=== PATIENT | male | born 1980 | race Caucasian/White ===

== ENCOUNTER 2020-05-31 10:26 | Emergency (ER) | payer SELFPAY ==
[2020-05-31 10:30] VITALS: BP 126/79; PULSE 77; RESP 16; TEMP 36.4; O2SAT 100
--- NOTE | 2020-05-31 10:57 | ED.GENADULT ---
HPI - General Adult General Chief complaint: Skin/Abscess/Foreign Body Stated complaint: infection under my arm Time Seen by Provider: 05/31/20 10:28 Source: patient Mode of arrival: ambulatory Limitations: no limitations History of Present Illness HPI narrative: Patient is a 39-year-old male who presents with several days duration of red tender swollen areas to the right armpit attempted to reyna the lesions unsuccessfully does note some drainage patient notes mild aching pain worse with touch and activity patient otherwise resting comfortably in the room on arrival in no distress denies fever chills nausea vomiting or immunocompromise Related Data Allergies Allergy/AdvReac Type Severity Reaction Status Date / Time hydrocodone Allergy Unknown Skin Verified 05/31/20 10:32 Reaction Sulfa (Sulfonamide Allergy Unknown Unknown Verified 05/31/20 10:32 Antibiotics) Review of Systems Review of Systems: All systems reviewed & are unremarkable except as noted in HPI and below PMFSH Family History Family History (Updated 04/04/16 @ 23:19 by DOCTOR UNKNOWN) Mother Family history of diabetes mellitus in first degree relative Social History Social History Smoking status: Never smoker Alcohol intake: never Exam Narrative: Exam Narrative: GENERAL: Well-appearing, well-nourished, and in no acute distress. HEAD: Normocephalic, atraumatic. EYES: PERRLA and EOMI. ENT: Nares clear, no rhinorrhea or epistaxis. Mucous membranes moist. CHEST: Clear to auscultation. No respiratory distress. No wheezes rales or rhonchi HEART: Regular rate and rhythm. No murmur heard. EXTREMITIES: Normal range of motion. No edema. SKIN: Warm, dry, no rash. Patient with 2 small abscesses in the right armpit one with central opening draining purulence no cellulitic changes surrounding the 2 abscesses both of which measure approximately 2 cm in diameter NEURO: No focal deficits. Alert and oriented x3. Neurovascularly intact PSYCH: Normal mood and affect. Course Course Emergency Course: Patient refused to have I&D of his abscesses patient was educated that the I&D is likely the answer to resolving the abscesses but patient is adamant that he does not want to do the I&D refused to do so. Patient will be given medications with plastic surgery follow-up advised to follow with primary care as well. Patient also given reasons to return Vital Signs Vital signs: Vital Signs Temperature 97.6 F 05/31/20 10:30 Pulse Rate 77 05/31/20 10:30 Respiratory Rate 16 05/31/20 10:30 Blood Pressure 126/79 05/31/20 10:30 Pulse Oximetry 100 05/31/20 10:30 Temperature 97.6 F 05/31/20 10:30 Pulse Rate 77 05/31/20 10:30 Respiratory Rate 16 05/31/20 10:30 Blood Pressure 126/79 05/31/20 10:30 Pulse Oximetry 100 05/31/20 10:30 Medical Decision Making MDM Narrative Medical decision making narrative: Patient refused I&D was made aware of that this is critical to the treatment of the abscess however he is still refusing to do so given anxiety. Patient will follow up with primary care and has been given reasons to return Vital Signs Vital Signs: Vital Signs Temperature 97.6 F 05/31/20 10:30 Pulse Rate 77 05/31/20 10:30 Respiratory Rate 16 05/31/20 10:30 Blood Pressure 126/79 05/31/20 10:30 Pulse Oximetry 100 05/31/20 10:30 Temperature 97.6 F 05/31/20 10:30 Pulse Rate 77 05/31/20 10:30 Respiratory Rate 16 05/31/20 10:30 Blood Pressure 126/79 05/31/20 10:30 Pulse Oximetry 100 05/31/20 10:30 Discharge Plan Discharge Clinical Impression: Abscess of skin or subcutaneous tissue Patient Disposition: Home, Self-Care Condition: Stable Instructions: Antibiotic Form, Abscess (ED) Additional Instructions: Follow up with primary care in the next 2-3 days for re-evaluation return if symptoms worsen or concerns, any increas
[2020-05-31] MEDS: LIDOCAINE HCL 1% LOCAL INJ 20 ML VIAL (11:22)
[2020-05-31 12:37] VITALS: BP 121/78; PULSE 76; RESP 16; O2SAT 99
== END 2020-05-31 12:39 | disposition home or self-care (01) ==
PROVIDERS: Emergency Provider Emergency Medicine
DX: L02.411 Cutaneous abscess of right axilla (principal)
CPT/HCPCS: 99283

== ENCOUNTER 2024-10-03 22:43 | Emergency (ER) | payer OTHER, SELFPAY ==
--- NOTE | ~2024-10-03 | XR_ITS ---
EXAMINATION: XR chest 2V DATE: 10/03/2024 23:30 INDICATION: Shortness of breath. TECHNIQUE: Frontal and lateral views of the chest were obtained. COMPARISON: Chest 2 views 12/23/2014 FINDINGS: There is no pneumonia, pleural effusion, or pneumothorax. The heart size is normal. There i s mild chronic anterior wedging of multiple vertebral bodies. IMPRESSION: 1. No acute cardiopulmonary disease. Reviewed, dictated and finalized at location [facility]. [facility]
--- NOTE | ~2024-10-03 | CT_ITS ---
Clinical Indication: Pulmonary embolus CT Scan of the Chest with Contrast: Technique: Contiguous sections were acquired throughout the chest after intravenous administration of 100 cc of Omnipaque 350. Dose reduction technique was used on this scan by utilizing automated expos ure control and iterative reconstruction technique. The dose-length product (DLP) was 642.40 mGy-cm. Findings: There is no evidence of any significant mediastinal, hilar or axillary lymphadenopathy. There is no f illing defect in the pulmonary arterial tree to suggest pulmonary embolus. There is no evidence of ao rtic dissection or aneurysm. There is no evidence of pleural or pericardial effusion. The lungs are clear. No pulmonary nodules or infiltrates are noted. Images through the upper abdomen reveal no abnormalities. There is mild chronic compression deformity of T9. Impression: No evidence of pulmonary embolus, aortic dissection, or aortic aneurysm. Clear lungs. Reviewed, dictated and finalized at [facility]. EE DEVELOPER Impression: No evidence of pulmonary embolus, aortic dissection, or aortic aneurysm. Clear lungs.
--- NOTE | 2024-10-03 22:59 | ECG_ITS ---
Test Date: 2024-10-03 23:08:11 Measurements Intervals [place] Rate: 137 P: 61 CT: 119 QRS: 68 QRSD: 72 T: 47 QT: 313 QTc: 474 Interpretive Statements SINUS TACHYCARDIA WITH SHORT CT INTERVAL NONSPECIFIC ST & T-WAVE ABNORMALITY No previous ECG available for comparison Electronically Signed On 10-04-2024 16:12:52 SAND OPERATOR by Francie Ponce M.D.
[2024-10-03 23:01] VITALS: BP 145/100; PULSE 129; RESP 20; TEMP 36.4; O2SAT 99
[2024-10-03 23:23] LABS: Basophils Absolute Auto 0.1 K/mm3 (0.0-0.1); Basophils Percent Auto 0.5 % (0.2-1.2); Hematocrit 43.5 % (42.0-52.0); Hemoglobin 15.3 g/dL (14.0-18.0); Immature Granulocyte Absolute 0.03 K/mm3 (0.00-0.031); Immature Granulocyte Percent A 0.3 % (0-0.5); Lymphocytes Absolute Auto 0.96 K/mm3 (0.9-3.2); Lymphocytes Percent Auto 8.7 % (18.3-44.2); Mean Corpuscular HGB Conc 35.2 g/dl (32-36); Mean Corpuscular Hemoglobin 29.7 pg (26-34); Mean Corpuscular Volume 84.5 fl (80-100); Mean Platelet Volume 11.2 fl (7.4-10.4); Monocytes Absolute Auto 0.4 K/mm3 (0.1-0.6); Monocytes Percent Auto 3.7 % (2.6-8.5); Neutrophils Absolute Auto 9.6 K/mm3 (1.3-6.7); Neutrophils Percent Auto 86.8 % (45.5-73.1); Platelet Count Result 242 k/mm3 (150-375); Red Blood Count 5.15 M/mm3 (4.6-6.20); Red Cell Distribution Width 12.5 % (11.5-14.5)
[2024-10-03 23:34] LABS: Alanine Aminotransferase 37 U/L (6-50); Albumin Level 4.8 g/dL (3.5-5.1); Alkaline Phosphatase 70 U/L (38-126); Anion Gap 19 mmol/L (4-12); Aspartate Amino Transferase 35 U/L (17-59); Bilirubin,Total 1.3 mg/dL (0.2-1.3); Blood Urea Nitrogen 19 mg/dL (9-20); Calcium 9.4 mg/dL (8.4-10.2); Carbon Dioxide 17 mmol/L (22-30); Chloride 102 mmol/L (98-107); Estimated CRCL calculation 98 ml/min; Estimated Glomerular Filt Rate > 60; Glucose 158 mg/dL (65-110); Potassium 3.9 mmol/L (3.4-5.0); Sodium 138 mmol/L (137-145)
[2024-10-04 00:07] VITALS: O2SAT 100
[2024-10-04 00:08] VITALS: BP 102/88; PULSE 110; RESP 16; O2SAT 100
[2024-10-04 00:31] VITALS: BP 133/89; PULSE 109; RESP 11; O2SAT 98
[2024-10-04] MEDS: LACTATED RINGERS 1,000 ML 999 ML IV CONT (00:47)
--- NOTE | 2024-10-04 00:47 | ED.SOB ---
HPI - SOB/Dyspnea General Chief Complaint: Shortness of Breath/Dyspnea Stated Complaint: headache Time Seen by Provider: 10/04/24 00:15 History of Present Illness HPI Narrative: 43-year-old otherwise healthy male presenting to the emergency room with flu-like symptoms for last day and a half. Patient states he woke up yesterday morning with a headache, occasional difficulty in breathing, body aches, subjective fever and chills, nauseousness and 1 episode of vomiting. He states he has been taking excessive amounts of Excedrin migraine for his headache without any relief of his symptoms. Presents to the ED today for evaluation. He states he took approximately 25 tablets of Excedrin yesterday and today. Denies any other ingestion such as Tylenol, alcohol or other substances. Endorses a productive cough and 1 episode of vomiting. Presently he states he feels comfortable and his headache is slowly resolved, no chest pain, dyspnea, abdominal pain, back pain. Related Data Allergies Allergy/AdvReac Type Severity Reaction Status Date / Time hydrocodone Allergy Unknown Skin Verified 05/31/20 10:32 Reaction Sulfa (Sulfonamide Allergy Unknown Unknown Verified 05/31/20 10:32 Antibiotics) Review of Systems Review of Systems: As reviewed above in HPI PMFSH Family History Family History Mother Family history of diabetes mellitus in first degree relative Social History Social History Smoking status: Never smoker Alcohol intake: never Exam Narrative: GENERAL: [Well-appearing, well-nourished, and in no acute distress.] HEAD: [Normocephalic, atraumatic.] EYES: [PERRLA and EOMI.] ENT: Nares clear, no rhinorrhea or epistaxis. Mucous membranes moist. NECK: Supple. CHEST: [Clear to auscultation. No respiratory distress.] HEART: Tachycardic rate, regular rhythm. No murmur heard. [Normal peripheral pulses.] ABDOMEN: [Soft, nondistended], [nontender], [No rigidity or guarding] EXTREMITIES: Normal range of motion. [No edema.] SKIN: Warm, dry, no rash. NEURO: [No focal deficits]. Alert and oriented [x3.] PSYCH: [Normal mood and affect.] Course Vital Signs Vital signs: Vital Signs Temperature 36.4 C 10/03/24 23:01 Pulse Rate 129 H 10/03/24 23:01 Respiratory Rate 20 10/03/24 23:01 Blood Pressure 145/100 H 10/03/24 23:01 Pulse Oximetry 99 10/03/24 23:01 Oxygen Delivery Room Air 10/03/24 23:01 Temperature 36.4 C 10/03/24 23:01 Pulse Rate 118 H 10/04/24 01:37 Respiratory Rate 11 L 10/04/24 01:37 Blood Pressure 155/97 H 10/04/24 01:37 Pulse Oximetry 99 10/04/24 01:37 Oxygen Delivery Room Air 10/04/24 00:07 MDM - SOB/Dyspnea MDM Narrative Medical decision making narrative: 43-year-old male presenting to the emergency department for flu-like symptoms, headache, shortness a breath, body aches, subjective fever and chills. Patient states that he woke up yesterday morning with a headache and has taken approximately 25 tablets of Excedrin migraine since yesterday morning but without any relief of his headache. He is tachycardic with a pulse 129 in triage, no significant blood pressure elevations, tachypnea, fever or hypoxia. He looks not any acute distress, soft nontender abdomen, symmetric calves, normal pulse with slightly tachycardic rate in both arms and legs. Clear breath sounds throughout. Will obtain viral swabs, chest x-ray, EKG, basic laboratory studies as well as toxicological screenings to make sure that he does not have any salicylate toxicity or other possible ingestion. Given his vomiting he was also given Zofran Pepcid and fluid bolus for rehydration and symptom control. Patient was re-evaluated frequently and had improvement his difficulty in breathing. His heart rate also came down with fluid bolus. He remains afebrile, saturating well on room air and lying comfortably in the stretcher. His a little salicylate level was slightly elevated at 22 so within therapeutic range however given that he took extended release tablets will have to get a delta to make sure that is down trending and not having a propensity to increase. His workup also revealed a leukocytosis of 11.0 which is nonspecific, no anemia, normal platelets. Blood gas within normal limits, no acidosis. Normal pH. Normal electrolyte profile aside from minor elevation in anion gap. BUN and creatinine within normal limits, normal glucose. Normal LFTs. Negative Tylenol and alcohol level. Negative COVID fluid RSV swabs. D-dimer elevated at 1.02. CT angiography ordered of his pulmonary vasculature. CTA read by statrad shows no evidence of a pulmonary embolism, no aortic aneurysm or dissection, clear lungs, normal heart size, no pathologically enlarged lymph nodes, no fracture. Overall unremarkable CT. Patient's repeat salicylate level was negative and given his symptomatic resolution and unremarkable workup he is safe and stable for discharge home at this time with regular PCP follow-up and return precautions. Patient was comfortable with this plan of care and safe for discharge home at this time. Medical Records Attestation: I reviewed the patient's medical records. Lab Data Attestation: I reviewed the patient's lab results. 10/03/24 23:16 10/03/24 23:16 Labs: Lab Results 10/03/24 10/04/24 10/04/24 Range/Units 23:16 00:21 03:08 WBC 11.0 H (4.5-10.0) K/mm3 RBC 5.15 (4.6-6.20) M/mm3 Hgb 15.3 (14.0-18.0) g/dL Hct 43.5 (42.0-52.0) % MCV 84.5 (80-100) fl MCH 29.7 (26-34) pg MCHC 35.2 (32-36) g/dl RDW 12.5 (11.5-14.5) % Plt Count 242 (150-375) k/mm3 MPV 11.2 H (7.4-10.4) fl Immature Gran % (Auto) 0.3 (0-0.5) % Neut % (Auto) 86.8 H (45.5-73.1) % Lymph % (Auto) 8.7 L (18.3-44.2) % [place] % (Auto) 3.7 (2.6-8.5) % Eos % (Auto) 0.0 (0-4.4) % Baso % (Auto) 0.5 (0.2-1.2) % Lymph # (Auto) 0.96 (0.9-3.2) K/mm3 [place] # (Auto) 0.4 (0.1-0.6) K/mm3 Eos # (Auto) 0.0 (0-0.3) K/mm3 Baso # (Auto) 0.1 (0.0-0.1) K/mm3 Abs Immat Gran (auto) 0.03 (0.00-0.031) K/mm3 Absolute Neuts (auto) 9.6 H (1.3-6.7) K/mm3 Absolute Nucleated RBC 0.000 (0.0-0.012) K/mm3 Nucleated RBC % 0.0 (0.0-0.2) % D-Dimer 1.02 H (<0.48) ug/mL Sodium 138 (137-145) mmol/L Potassium 3.9 (3.4-5.0) mmol/L Chloride 102 (98-107) mmol/L Carbon Dioxide 17 L (22-30) mmol/L Anion Gap 19 H (4-12) mmol/L BUN 19 (9-20) mg/dL Creatinine 1.02 (0.7-1.3) mg/dL Estim Creat Clear Calc 98 ml/min Estimated GFR > 60 (59 - ) Glucose 158 H (65-110) mg/dL Calcium 9.4 (8.4-10.2) mg/dL Phosphorus 3.6 (2.5-4.5) mg/dL Magnesium 1.7 (1.6-2.3) mg/dL Total Bilirubin 1.3 (0.2-1.3) mg/dL AST 35 (17-59) U/L ALT 37 (6-50) U/L Alkaline Phosphatase 70 (38-126) U/L Total Protein 9.0 H (6.3-8.2) g/dL Albumin 4.8 (3.5-5.1) g/dL Salicylates 22.8 H* 19.8 (2-20) mg/dL Acetaminophen 11 (10-30) ug/mL Ethyl Alcohol < 10 (<10) mg/dL Influenza A (RT-PCR) Negative (Negative) Influenza B (RT-PCR) Negative (Negative) RSV (RT-PCR) Negative (Negative) SARS-CoV-2 RNA (RT-PCR) Negative (Negative) ABG Data ABG results: 10/04/24 01:29 VBG pH 7.394 VBG pCO2 36.2 L VBG pO2 29.8 L VBG HCO3 21.6 L O2 Delivery Device Not Reportable O2 Liters/Min Not Reportable FiO2 21 Attestation: I personally reviewed and interpreted this ABG as follows: Interpretation: Normal pH, no acidosis. Normal bicarb. Imaging Data Attestation: I personally reviewed and interpreted this imaging study as follows: Radiologist's impression: No PE, no aneurysm or dissection, no pneumonia, clear lungs Discharge Plan Discharge Clinical Impression: Shortness of breath, Tachycardia, Salicylates causing adverse effect in therapeutic use Patient Disposition: Home, Self-Care Condition: Stable Instructions: Antibiotic Form Additional Instructions: Your workup here was very reassuring, your CT scan, chest x-ray and electrolyte panel were all reassuring, your salicylate level was down trending and given that they were briefly elevated could be the cause of your shortness of breath, you need to stop taking too much Excedrin or any other aspirin, salicylate containing compounds. If you have any persistent or new/worsening symptoms please seek re-evaluation otherwise follow-up with your regular doctor on outpatient basis. Patient Language: Belarusian Prescriptions: No Action doxycycline hyclate 100 mg capsule 100 mg PO Q12H 14 Days Qty: 28 0RF mupirocin 2 % ointment 1 applic TOPICAL TID Qty: 15 0RF chlorhexidine gluconate [Hibiclens] 4 % liquid 1 applic TOPICAL BID-TID Qty: 3785 0RF Rx Instructions: as a single dose Follow-up/Referrals: UNKNOWN,DOCTOR [Primary Care Provider] - Time of Disposition: 03:46
[2024-10-04 00:48] LABS: D Dimer 1.02 ug/mL (<0.48)
[2024-10-04 00:59] LABS: Acetaminophen 11 ug/mL (10-30)
[2024-10-04 01:01] VITALS: BP 169/90; PULSE 115; RESP 15; O2SAT 97
[2024-10-04 01:02] LABS: Ethanol < 10 mg/dL (<10); Salicylate 22.8 mg/dL (2-20)
[2024-10-04 01:06] LABS: Influenza A QL RT-PCR Negative (Negative); Influenza B QL RT-PCR Negative (Negative); RSV RNA, RT-PCR Negative (Negative); SARS-CoV-2 RNA PCR Negative (Negative)
[2024-10-04] MEDS: ONDANSETRON INJ 4 MG/2 ML VIAL IV PUSH (01:31)
[2024-10-04] MEDS: FAMOTIDINE 20 MG/2 ML VIAL IV PUSH (01:32)
[2024-10-04 01:36] LABS: Fractional Inspired Oxygen 21 %; HCO3 VBG 21.6 mEq/l (24.0-30.0); PCO2 VBG 36.2 mmHg (42.0-48.0); PO2 VBG 29.8 mmHg (35.0-45.0); pH VBG 7.394 (7.300-7.400)
[2024-10-04 01:37] VITALS: BP 155/97; PULSE 118; RESP 11; O2SAT 99
[2024-10-04 01:37] LABS: Magnesium 1.7 mg/dL (1.6-2.3); Phosphorus 3.6 mg/dL (2.5-4.5)
--- NOTE | 2024-10-04 01:40 | PC.NURSE ---
care and report given to CARLTON Chu. all questions answered.
[2024-10-04 03:22] LABS: Salicylate 19.8 mg/dL (2-20)
== END 2024-10-04 04:04 | disposition home or self-care (01) ==
PROVIDERS: Emergency Provider Student in an Organized Health Care Education/Training Program
DX: R06.02 Shortness of breath (principal); R00.0 Tachycardia, unspecified; T39.095A Adverse effect of salicylates, initial encounter; Z20.822 Contact with and (suspected) exposure to COVID-19
CPT/HCPCS: 36415; 71046; 71275; 80053; 80143; 80179; 82077; 82803; 83735; 84100; 85025; 85380; 87637; 93005; 96361; 96374; 96375; 99284; J2405; J7120; Q9967